=== PATIENT | male | born 1970 | race Caucasian/White ===

== ENCOUNTER 2019-01-14 10:40 | Emergency (ER) | payer SELFPAY ==
[2019-01-14 10:42] VITALS: BP 140/93; PULSE 78; RESP 16; TEMP 36.5; O2SAT 97; BMI 30.7
--- NOTE | 2019-01-14 10:59 | ED.DCSUM_ITS ---
- ER Visit Summary Date of Service: 01/14/19 Chief Complaint: Right eye swelling and foreign body sensation History of Present Illness: The patient is a 48 M who presents with foreign body sensation and swelling of his right eyelid that began today. Patient states he was blowing some grass when something got into his eye. Patient denies any visual changes. Patient still feels like there is something in his eye. Patient states he did wash out his eye. Patient normally wears glasses. Patient denies any discharge or drainage. Patient denies any matting or crusting. Physical Examination: Vital signs are stable. Patient is afebrile. Patient is in no acute distress. Pupils are equal, round, and reactive to light bilaterally. Extraocular muscles are intact. There are no foreign bodies noted. There is edema of the right upper eyelid. The right upper eyelid was inverted. There are no foreign bodies noted there. Anterior chamber was clear. There is no hyphema. Tetracaine and fluorescein dye was applied. There are some scleral abrasions but there is no corneal abrasion. There is no foreign body noted. Emergency Department Course and Treatment: The right eye was irrigated with 500 cc normal saline through [place] lens. Patient was given gentamicin ophthalmic ointment. Patient was instructed to apply this 3 times daily. Patient was instructed to follow-up with his primary care physician in 1 to 2 days. Patient understood and was agreeable with the plan. All questions were answered. Disposition: Discharge home Impression: Scleral abrasion This note was generated with [employer] dictation software. It may contain incorrect words, spelling, and punctuation that were not noted in review of the chart prior to signing ED Disposition - Plan for ED Patient: Disposition: Home or Assisted Living Diagnosis: Abrasion of sclera of right eye Instructions: ED Eye Injury Corneal Abrasion Referrals: Care Physician,Livia Primary [Primary Care Provider] - Lele Jordan DO [NON CLINICAL AFFILIATE] - 2 Days
[2019-01-14] MEDS: Fluorescein 1 MG STRIP 1 STRIP EACH EYE (11:21)
[2019-01-14] MEDS: Tetracaine 0.5% Ophthalmic Bottle 1 DRP EACH EYE (11:21)
[2019-01-14] MEDS: Tobramycin Sulf 0.3% 5ML OPTH.BTL RIGHT EYE (12:13)
[2019-01-14 12:20] VITALS: PULSE 88; RESP 15
== END 2019-01-14 12:21 | disposition home or self-care (01) ==
LOC: ED 11:56
PROVIDERS: Emergency Provider Emergency Medicine
DX: S05.01XA Injury of conjunctiva and corneal abrasion without foreign body, right eye, initial encounter (principal); X58.XXXA Exposure to other specified factors, initial encounter; Y93.H2 Activity, gardening and landscaping; Y92.9 Unspecified place or not applicable
CPT/HCPCS: 99284; J7040